=== PATIENT | male | born 1985 | race Two or more races ===

== ENCOUNTER 2024-04-12 19:13 | Emergency (ER) | payer MEDICAID, SELFPAY ==
[2024-04-12 19:14] VITALS: BMI 34.4
[2024-04-12 19:36] VITALS: BP 156/105; BP 163/105; PULSE 80; RESP 18; TEMP 36.6; O2SAT 100
--- NOTE | 2024-04-12 19:59 | PD.EDEAR ---
ED Ear RME/HPI General Chief complaint: Ear Stated complaint: RIGHT EAR INFECTION Time Seen by Provider: 04/12/24 19:59 Source: patient Arrival date/time: 04/12/24 19:13 39-year-old male with past medical history of diabetes presents emergency department complaining of right ear pain and drainage since yesterday. Patient denies any fever, chills, cough, shortness of breath, sore throat, or any other associated symptom. Mode of arrival: ambulatory Limitations: no limitations Related Data Home Medications ?Medication ?Instructions ?Recorded ?Confirmed DM MED PO QDAY ##0 03/13/14 HTN MED PO QDAY ##0 03/13/14 Previous Rx's ?Medication ?Instructions ?Recorded cyclobenzaprine 10 mg tablet 10 mg PO TID PRN muscle spasm #20 01/02/22 tabs ibuprofen 800 mg tablet 800 mg PO TID PRN pain #30 tabs 01/02/22 amoxicillin 875 mg-potassium 1 tab PO BID 7 days #14 tabs 04/12/24 clavulanate 125 mg tablet ibuprofen 600 mg tablet 600 mg PO Q8H PRN pain #20 tabs 04/12/24 ofloxacin 0.3 % ear drops 10 drp otic (ear) QDAY 7 days #5 mL 04/12/24 Allergies Allergy/AdvReac Type Severity Reaction Status Date / Time No Known Allergies Allergy Verified 01/02/22 14:12 Review of Systems Review of Systems Systems Reviewed: All systems reviewed, normal except as documented Constitutional Constitutional: Reports system reviewed and no additional complaints, except as documented, Denies body ache(s), Denies chills and Denies fever(s) Eyes Eyes: Reports system reviewed and no additional complaints, except as documented and Denies change in vision ENT Ears, Nose, Mouth, and Throat: Reports system reviewed and no additional complaints, except as documented, Denies disequilibrium, Denies dizziness, Reports otalgia, Denies sore throat and Denies vertigo Cardiovascular Cardiovascular: Reports system reviewed and no additional complaints, except as documented, Denies chest pain and Denies dyspnea Respiratory Respiratory: Reports system reviewed and no additional complaints, except as documented, Denies chest congestion, Denies cough and Denies dyspnea Gastrointestinal Gastrointestinal: Reports system reviewed and no additional complaints, except as documented, Denies abdominal pain, Denies nausea and Denies vomiting Musculoskeletal Musculoskeletal: Reports system reviewed and no additional complaints, except as documented, Denies abnormal gait and Denies arthralgias Integumentary/Breasts Skin/Breast: Reports system reviewed and no additional complaints, except as documented, Denies erythema, Denies rash and Denies wounds Neurologic Neurologic: Reports system reviewed and no additional complaints, except as documented, Denies abnormal gait, Denies disequilibrium, Denies dizziness and Denies vertigo Past Medical History Social History SMOKING STATUS: Never smoker ED Exam General Limitations: Present no limitations General appearance: Present alert and in no apparent distress Head Head exam: Present atraumatic Eye Eye exam: Present normal appearance, PERRL and EOMI ENT ENT exam: Present normal exam, normal oropharynx and mucous membranes moist Expanded ENT Exam External ear exam: Present pain with movement TM/Canal exam: Right TM: erythema, bulging, loss of landmarks, canal discharge and canal tenderness Throat exam: Absent tonsillar erythema or tonsillar exudate Neck Neck exam: Present normal inspection, full ROM and trachea midline Chest Chest inspection: Present normal inspection and symmetric chest wall rise Respiratory Respiratory exam: Present normal lung sounds bilaterally Cardiovascular Cardiovascular exam: Present regular rate, normal rhythm and normal heart sounds Abdominal Exam Abdominal exam: Present soft and normal bowel sounds Extremities Exam Extremities exam: Present normal inspection and full ROM Back Exam Back exam: Present normal inspection and full ROM Neurological Exam Neurological exam: Present alert, oriented X3 and CN II-XII intact Psychiatric Psychiatric exam: Present normal affect and normal mood Skin Skin exam: Present warm, dry, intact and normal color Course Quality Measures none Vital Signs Vital signs: Vital Signs Temperature 97.9 F 04/12/24 19:36 Pulse Rate 80 04/12/24 19:36 Respiratory Rate 18 04/12/24 19:36 Blood Pressure 156/105 H 04/12/24 19:36 Pulse Oximetry (%) 100 04/12/24 19:36 Oxygen Delivery Method Room Air 04/12/24 19:36 100% room air within normal limits Ear MDM Narrative MDM Narrative:: 39-year-old male with past medical history of diabetes presents emergency department complaining of right ear pain and drainage since yesterday. Patient denies any fever, chills, cough, shortness of breath, sore throat, or any other associated symptom. Patient appears nontoxic and hemodynamically stable. ENT exam consistent with otitis media and otitis externa. Patient discharged home on otic and oral antibiotics. Patient instructed to follow-up with primary care provider in 24 to 48 hours and return to emergency department for any worsening symptoms or as needed. Patient data External records reviewed:: [facility] previous records Clinical information provided by:: patient Social determinants that could affect healthcare access:: none Patient has the following chronic illnesses:: See chart How is presenting disease/condition affected by chronic disease/condition?: uneffected by Evaluation data The following diagnostics were reviewed and interpreted by me:: other (specify) (N/A) Lab and/or radiology exams considered but not ordered:: Not applicable Interpretation Summary: Not applicable Medications / Prescriptions Medications or Prescriptions considered but not ordered:: Prescribed Medication administrations:: N/A Consultations Consultation(s) initiated? (list below): No Diagnosis Ear Differential Diagnosis: otitis externa and otitis media Most likely diagnosis given after review of the tests above:: Otitis media Otitis externa Admission Indicated Admission indicated?: not indicated Admission Request Was there a request for admission?: No Disposition Plan Disposition Plan: Discharge Discharge Attestation Discharge Attestation: The patient and all family members were given an opportunity to ask questions and understood the discharge instructions. Discharge instructions specifically effects, indications for sooner follow up or return to the emergency department, and the expected course of current diagnosis. Patient condition: Stable Discharge Plan Plan Patient Disposition: HOME (Self Care) Disposition Comment: Stable Prescriptions/Referrals Prescriptions/Med Rec: New amoxicillin-pot clavulanate 875-125 mg tablet 1 tab PO BID 7 Days Qty: 14 0RF ofloxacin 0.3 % drops 10 drp otic (ear) QDAY 7 Days Qty: 5 0RF ibuprofen 600 mg tablet 600 mg PO Q8H PRN (Reason: pain) Qty: 20 0RF No Action DM MED PO QDAY Qty: 0 HTN MED PO QDAY Qty: 0 ibuprofen 800 mg tablet 800 mg PO TID PRN (Reason: pain) Qty: 30 0RF cyclobenzaprine 10 mg tablet 10 mg PO TID PRN (Reason: muscle spasm) Qty: 20 0RF Problem List Clinical Impression: Otitis media, Otitis externa Patient/Caregiver Discharge Instructions Discharge Activity: activity as tolerated Education Materials: Common Middle Ear Problems, Anatomy of the Ear Additional Instructions: Take medication as prescribed. Follow-up with primary care provider in 2 to 3 days. For reevaluation of right ear. Return to emergency department for any worsening symptoms or as needed. Print Language: Slovenian Stand Alone Forms: [employer]na Award Info., Patient Portal Info Letter MD Attestation Attestation The patient was seen by the midlevel practitioner. I, the co-signing physician, was present during the entire ER visit. While I did not physically examine the patient, I was available for consultation as needed.
== END 2024-04-12 20:19 | disposition home or self-care (01) ==
LOC: SERX 20:22
PROVIDERS: Emergency Provider Emergency Medicine; PCP Family Medicine
DX: H66.91 Otitis media, unspecified, right ear (principal); H60.91 Unspecified otitis externa, right ear
CPT/HCPCS: 99281